=== PATIENT | male | born 1965 | race Caucasian/White ===

== ENCOUNTER 2016-03-13 05:53 | Observation (INO) | payer BC ==
[2016-01-11 08:50] VITALS: BMI 30.7
[2016-03-07 09:08] VITALS: Ht 177.8 cm; Wt 100.8 kg
[~2016-03-13] VITALS: Ht 177.8 cm; Wt 100.8 kg
[2016-03-13] VITALS (28 sets, daily range): BP systolic 97–140; RESP 10–20; TEMP 97–97.8
[2016-03-13] MEDS ORDERED: LEVOFLOXACIN 500 MG/100 ML 100 ML IV ONE (06:25)
[2016-03-13] MEDS ORDERED: MIDAZOLAM 2 MG/2 ML INJ IV ONE (07:05)
[2016-03-13] MEDS ORDERED: LACT RINGERS 1,000 ML IV SCH (07:05)
[2016-03-13] MEDS ORDERED: LIDOCAINE 1% BUFFERED 1 ML SYR INTRADERM PRN (07:05)
[2016-03-13] MEDS ORDERED: GLYCOPYRROLATE 0.2 MG/ML VIAL IV ONE (07:05)
[2016-03-13] MEDS ORDERED: MORPHINE 2 MG/ML SYR IV PRN (07:20)
[2016-03-13] MEDS ORDERED: OXYCODONE 5 MG TAB PO PRN (07:20)
[2016-03-13] MEDS ORDERED: MEPERIDINE 25 MG/ML IV PRN (07:20)
[2016-03-13] MEDS ORDERED: ONDANSETRON 4 MG VIAL IV PRN (07:20)
[2016-03-13] MEDS ORDERED: DILAUDID 1 MG/ML AMP IV PRN (07:20)
[2016-03-13] MEDS ORDERED: MORPHINE 4 MG/ML SYR IV PRN (07:20)
[2016-03-13] MEDS ORDERED: NITROGLYCERIN SL 0.4 MG TAB SL ONE ×2 (09:00→09:02)
[2016-03-13] MEDS: SODIUM CHLORIDE 0.9% 1,000 ML IV SCH ×2 (09:17→17:30)
[2016-03-13] MEDS ORDERED: ASPIRIN 81 MG CHEW TAB PO ONE (09:25)
[2016-03-13] MEDS ORDERED: ACETAMINOPHEN 1,000 MG/100 ML IV ONE (10:20)
[2016-03-13] MEDS ORDERED: FENTANYL 100 MCG/2 ML AMP IV ONE (10:20)
[2016-03-13] MEDS ORDERED: LIDOCAINE 2% SYR 5 ML IV ONE (10:20)
[2016-03-13] MEDS ORDERED: DEXAMETHASONE 4 MG/ML VIAL IV ONE (10:20)
[2016-03-13] MEDS ORDERED: ROCURONIUM 50 MG VIAL IV ONE (10:20)
[2016-03-13] MEDS ORDERED: PROPOFOL 20 ML VIAL IV ONE (10:20)
[2016-03-13] MEDS ORDERED: ONDANSETRON 4 MG VIAL IV PUSH ONE (10:20)
[2016-03-13] MEDS: DILAUDID 1 MG/ML AMP IV PRN ×3 (11:37→21:28)
[2016-03-13] MEDS ORDERED: CHOLECALCIFEROL 5,000 UNITS CAP PO SCH (12:10)
[2016-03-13] MEDS ORDERED: PHENAZOPYRIDINE 100 MG TAB PO PRN (12:10)
[2016-03-13] MEDS: LISINOPRIL/HCTZ 10/12.5 TAB PO SCH ×2 (13:19→13:58)
[2016-03-13] MEDS: LABETALOL 100 MG TAB PO SCH ×3 (13:21→21:26)
[2016-03-13] MEDS: TAMSULOSIN 0.4 MG CAP PO SCH ×2 (13:47→21:27)
[2016-03-13] MEDS: BUPROPION HCL 75 MG TAB PO SCH ×2 (13:58→21:00)
[2016-03-13] MEDS: ISOSORBIDE MONO 30 MG TAB PO SCH ×2 (13:58→21:27)
[2016-03-13] MEDS: ESCITALOPRAM 10 MG TAB PO SCH (13:58)
[2016-03-13] MEDS ORDERED: ZOLPIDEM 5 MG TAB PO PRN (16:00)
[2016-03-13] MEDS ORDERED: ONDANSETRON 4 MG VIAL IV PUSH PRN (16:00)
[2016-03-13] MEDS ORDERED: MISSING DOSE XX ONE (20:50)
[2016-03-13] MEDS ORDERED: Atorvastatin 20 MG TAB PO SCH (21:00)
[2016-03-14] MEDS: DILAUDID 1 MG/ML AMP IV PRN (02:21)
[2016-03-14] MEDS: SODIUM CHLORIDE 0.9% 1,000 ML IV SCH (03:39)
[2016-03-14 03:46] VITALS: BP_SYST 122; RESP 20; TEMP 97.6
[2016-03-14] MEDS: BUPROPION HCL 75 MG TAB PO SCH (07:41)
[2016-03-14] MEDS: LISINOPRIL/HCTZ 10/12.5 TAB PO SCH (07:41)
[2016-03-14] MEDS: ESCITALOPRAM 10 MG TAB PO SCH (07:41)
[2016-03-14] MEDS: ISOSORBIDE MONO 30 MG TAB PO SCH (07:41)
[2016-03-14] MEDS: TAMSULOSIN 0.4 MG CAP PO SCH (07:41)
[2016-03-14] MEDS: LABETALOL 100 MG TAB PO SCH (07:42)
[2016-03-14 07:48] VITALS: BP_SYST 113; RESP 16; TEMP 97.4
[2016-03-14 09:38] VITALS: BP_SYST 113; RESP 16; TEMP 97.4
[2016-03-14 09:54] VITALS: BP_SYST 113; RESP 16; TEMP 97.4
== END 2016-03-14 09:22 | disposition home or self-care (01) ==
LOC: ENRESERVTM → CANRESERV → ENRESERVDT → SURG 05:53 → SDS 08:41 → 5THE 11:01
PROVIDERS: ADMIT Urology; ATTEND Urology
DX: N40.1 Benign prostatic hyperplasia with lower urinary tract symptoms (principal); N13.8 Other obstructive and reflux uropathy; I20.1 Angina pectoris with documented spasm; I10 Essential (primary) hypertension; K21.9 Gastro-esophageal reflux disease without esophagitis; E78.5 Hyperlipidemia, unspecified
CPT/HCPCS: 80048; 84484; 93005